=== PATIENT | male | born 1985 | race Caucasian/White ===

== ENCOUNTER 2017-07-24 12:07 | Emergency (ER) | payer OTHER ==
[~2017-07-24] VITALS: Ht 172.7 cm; Wt 75.0 kg
[~2017-07-24 12:07] MED LIST: LORT5TAB PO; OXYC15TA3 PO; OXYC30TA3 PO; SULF1TAB47 PO; XANA2TAB2 PO
[2017-07-24 12:15] VITALS: BP 117/61; PULSE 77; RESP 16; TEMP 98.1; O2SAT 97
[2017-07-24] MEDS ORDERED: TEGR200T PO (12:24)
[2017-07-24] MEDS ORDERED: DILA30CA PO (12:24)
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
[2017-07-24 12:45] LABS: AUTOMATED NEUTROPHIL # 5.5 TH/MM3 (1.8-7.7); BASOPHIL # 0.2 TH/MM3 (0-0.2); BASOPHIL % 1.2 % (0.0-2.0); EOSINOPHIL # 0.3 TH/MM3 (0-0.4); EOSINOPHIL % 1.7 % (0.0-4.0); HEMATOCRIT 41.8 % (39.0-51.0); HEMOGLOBIN 14.1 GM/DL (13.0-17.0); LYMPH % 44.6 % (9.0-44.0); LYMPHOCYTE # 6.6 TH/MM3 (1.0-4.8); MEAN CORPUSCULAR HEMOGLOBIN 29.4 PG (27.0-34.0); MEAN CORPUSCULAR HGB CONC 33.8 % (32.0-36.0); MONO % 15.5 % (0.0-8.0); MONOCYTE # 2.3 TH/MM3 (0-0.9); PLATELET COUNT 329 TH/MM3 (150-450); RED BLOOD COUNT 4.81 MIL/MM3 (4.50-5.90); RED CELL DISTRIBUTION WIDTH 14.9 % (11.6-17.2); WHITE BLOOD COUNT 14.9 TH/MM3 (4.0-11.0)
[2017-07-24 12:56] LABS: BILIRUBIN, URINE NEG (NEG); BLOOD, URINE NEG (NEG); GLUCOSE,URINE NEG (NEG); KETONE, URINE NEG (NEG); MUCUS URINE FEW /lpf (OCC); NITRITE,URINE NEG (NEG); PH, URINE 5.5 (5.0-8.5); SQUAMOUS EPITHELIAL CELL URINE <1 /hpf (0-5); URINE COLOR YELLOW (YELLW/STRAW); URINE LEUKOCYTE ESTERASE NEG (NEG)
[2017-07-24 13:00] LABS: ALBUMIN 3.6 GM/DL (3.4-5.0); AST (GOT) 56 U/L (15-37); BICARBONATE 29.5 MEQ/L (21.0-32.0); BLOOD UREA NITROGEN 13 MG/DL (7-18); CALCIUM 8.9 MG/DL (8.5-10.1); CHLORIDE 107 MEQ/L (98-107); CREATININE 0.98 MG/DL (0.60-1.30); GLOMERULAR FILTRATION RATE 90 ML/MIN (>89); GLUCOSE,RANDOM 110 MG/DL (74-106); SODIUM (NA) 141 MEQ/L (136-145)
[2017-07-24 13:01] LABS: ALT (GPT) 89 U/L (12-78)
[2017-07-24 13:03] LABS: ALKALINE PHOSPHATASE 84 U/L (45-117); TOTAL BILIRUBIN ADULT 0.4 MG/DL (0.2-1.0); TOTAL PROTEIN 7.3 GM/DL (6.4-8.2)
[2017-07-24 13:15] LABS: BASOPHILS 1 % (0-2); LYMPHOCYTES 45 % (9-44); MONOCYTES 14 % (0-8); NEUTROPHIL # MANUAL DIFF 5.7 TH/MM3 (1.8-7.7); POLYS (SEG NEUTROPHILS) 38 % (16-70)
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
[2017-07-24 14:03] VITALS: BP 120/75; PULSE 78; RESP 16; O2SAT 98
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
== END 2017-07-24 14:05 ==
LOC: NEPD 12:07
DX: M54.2 Cervicalgia (principal); R11.2 Nausea with vomiting, unspecified; R51 Headache; H92.02 Otalgia, left ear; M25.561 Pain in right knee; G89.29 Other chronic pain; M54.9 Dorsalgia, unspecified; F14.90 Cocaine use, unspecified, uncomplicated; F12.90 Cannabis use, unspecified, uncomplicated
CPT/HCPCS: 70450; 71101; 72040; 73560; 80053; 80307; 81001; 85007; 85027; 99285; P9612